=== PATIENT | male | born 1975 | race Caucasian/White ===

== ENCOUNTER 2019-01-08 20:42 | Inpatient (IN) ==
[2019-01-08] MEDS ORDERED: LOVENOX SUBQ ONE (21:04)
[2019-01-08] MEDS ORDERED: MORPHINE IV ONE (21:05)
[2019-01-08] MEDS ORDERED: ASPIRIN PO ONE (21:23)
[2019-01-08] MEDS ORDERED: ZOFRAN IV ONE (21:24)
[2019-01-08 21:26] LABS: BASO# 0.03 X1000 (0.0-0.2); BASO% 0.2 % (0.0-0.8); EOS# 0.29 X1000 (0.0-0.7); EOS% 2.1 % (0.0-10.0); HEMATOCRIT 44.3 % (42.0-52.0); HEMOGLOBIN 14.9 g/dL (14.0-18.0); IMM GRAN# 0.04 X1000 (0.0-0.04); IMM GRAN% 0.3 % (0.0-0.5); LYMPH# 2.06 X1000 (1.2-3.4); LYMPH% 15.2 % (20.5-51.1); MCH 30.2 PG (27-31); MCHC 33.6 g/dL (33-37); MCV 89.7 FL (81-99); MONO# 1.02 X1000 (0.11-0.59); MONO% 7.5 % (1.7-9.3); MPV 9.7 FL (7.4-10.4); NEUT# 10.11 X1000 (1.4-6.5); NEUT% 74.7 % (42.2-75.2); PLT 229 X1000 (130-400); RBC 4.94 XMIL (4.7-6.1); RDW 14.3 % (11.5-14.5); WBC 13.55 X1000 (4.8-10.8)
[2019-01-08 21:51] LABS: AGAP 12; BUN 22 mg/dL (8-22); CALCIUM 9.3 mg/dL (8.8-10.2); CHLORIDE 100 mmol/L (98-107); COSMO 277; ESTIMATED GFR > 60; GLUCOSE 123 mg/dL (70-104); POTASSIUM 4.2 mmol/L (3.5-5.1); SODIUM 136 mmol/L (136-145); TCO2 24 mmol/L (25-35)
--- NOTE | 2019-01-08 22:16 | Diag Imaging Result Doc PS360 ---
EXAM: CT ANGIOGRM PULMONARY ARTERIES HISTORY: DVTs, out of warfarin, sob, chest pain TECHNIQUE: CT chest with intravenous contrast. Pulmonary arterial protocol. COMPARISON: None. FINDINGS: There are filling defects in the left lower lobe pulmonary artery and the proximal branches of the left lower lobe pulmonary artery. Small filling defect in the posterior branch of the left upper lobe pulmonary artery. No thoracic aortic aneurysm or dissection. Trace left pleural fluid. There are mild increased interstitial markings posteriorly in the left upper and lower lobes. There is a small amount of atelectasis posteriorly in the right lower lobe. There is a calcified granuloma in the left upper lobe and there calcified left hilar lymph nodes. IMPRESSION: 1.Left lower lobe pulmonary emboli 2.Small left lung infiltrates versus infarction with basilar atelectasis This report was discussed with Dr. Styles on 01/08/2019 at 10:10 PM and was readback. This exam was performed using automated exposure control, adjustment of mA or kV according to patient size, and/or use of iterative reconstruction technique. Electronically signed by Luis Felpie Baum 01/08/2019 10:13 PM
[2019-01-08] MEDS ORDERED: TORADOL IV ONE (22:28)
[2019-01-08] MEDS ORDERED: ROCEPHIN 1 GM in NS 50 ML IV ONE (22:29)
[2019-01-08] MEDS ORDERED: DILAUDID IV ONE (22:35)
[2019-01-08] MEDS ORDERED: TYLENOL PO ONE (23:01)
--- NOTE | 2019-01-08 23:56 | PROVIDER DOCUMENTATION ---
This chart was entered by Юлия Morales Scribe, acting as scribe for Kleber Castrejon MD. HPI-General Adult - General Chief Complaint: Shortness of Breath Stated Complaint: sob Time Seen by Provider: 01/08/19 20:54 Source: patient Allergies/Adverse Reactions: Patient Allergies Allergy/AdvReac Type Severity Reaction Status Date / Time bacitracin Allergy SWELLING Verified 01/08/19 21:25 [From Neosporin ([id number])] neomycin Allergy SWELLING Verified 01/08/19 21:25 [From Neosporin ([id number])] polymyxin B Allergy SWELLING Verified 01/08/19 21:25 [From Neosporin ([id number])] Sulfa (Sulfonamide Allergy SWELLING Verified 01/08/19 21:25 Antibiotics) - History of Present Illness -Gen Adult Nature of Presenting Problems: Pt is 43/M presents to ED via EMS w/ SOB and left side CP increase with breathing started slowly this morning getting worse,10/10. Pt is suppose to take Warfarin but could not afford it. 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 Location of Pain/Injury: reports: chest (pressure) Quality of Pain: reports: pressure Severity: reports: mild Onset/Duration: reports: just prior to arrival Context/Activities at Onset: reports: none Modifying Factors: improves with: nothing Associated Symptoms: reports: chest pain, shortness of breath. denies: vomiting Review of Systems - Adult - REVIEW OF SYSTEMS - ADULT Constitutional: reports: no symptoms reported. denies: chills, fever Eyes: reports: no symptoms reported Ears, Nose, Mouth & Throat: reports: no symptoms reported Cardiovascular: reports: chest pain. denies: edema Respiratory: reports: no symptoms reported, shortness of breath. denies: cough , wheezing Gastrointestinal: reports: no symptoms reported Genitourinary: reports: no symptoms reported Musculoskeletal: reports: no symptoms reported Integumentary: reports: no symptoms reported Neurological: reports: no symptoms reported. denies: dizziness/vertigo, headache/migraines Psychiatric: reports: no symptoms reported Endocrine: reports: no symptoms reported Hematologic/Lymphatic: reports: no symptoms reported Allergic/Immunologic: reports: no symptoms reported All Other Systems: Reviewed and Negative Past History - Adult - PAST MEDICAL HISTORY-ADULT Review of Records: reports: Old Records Reviewed, Nursing Assessment Review, Medications Reviewed, Social history reviewed & non-contributory. Physical Exam-General - CONSTITUTIONAL General Appearance: alert, moderate distress, other (looks in pain) - EYES Eyes: PERRL/EOMI - HEAD, EARS, NOSE, MOUTH & THROAT HENMT: normocephalic/atraumatic, moist mucous membranes, normal ENT inspection - NECK Neck: non-tender - RESPIRATORY Respiratory: lungs clear, normal breath sounds, other (Tacypneic) - CARDIOVASCULAR Cardiovascular: normal peripheral pulses, regular rate, rhythm, no edema - GASTROINTESTINAL (ABDOMEN) Abdominal Exam: normal bowel sounds, non tender, soft - MUSCULOSKELETAL Extremity: normal range of motion, non-tender, normal gait, normal inspection - SKIN Integumentary: normal color, warm/dry - NEUROLOGIC Neurologic: grossly normal Progress - PLAN OF CARE/RESULTS Progress/Plan/Lab Results: Vital Signs - 8 hr 01/08/19 20:44 Temperature 98.5 F Pulse Rate 99 H Respiratory Rate 20 Blood Pressure 166/89 O2 Sat by Pulse Oximetry 100 Orders Category Date Time Status Cardiac Monitoring DIRECTED Care 01/08/19 21:06 Active Use Oxygen.Protocol ORDERED Care 01/08/19 21:06 Active CTA [CT ANGIOGRM PULMONARY ARTERIES] [CT] Stat Exams 01/08/19 21:04 Ordered BMP [BASIC METABOLIC PANEL] [CHEM] Stat Lab 01/08/19 21:18 Ordered CBC WITH ELECTRONIC DIFF [HEME] Stat Lab 01/08/19 21:18 Ordered Enoxaparin 1 mg/kg [Lovenox 1 mg/kg] Med 01/08/19 21:04 Once 1 each SUBQ NOW ONE Morphine Med 01/08/19 21:05 Discontinued 8 mg IV NOW ONE EKG [EKG] Stat Ther 01/08/19 20:42 Ordered High suspicion for PE, anticoagulation ordered directly before CTA, nurse informed of the plan Result Diagrams: 01/08/19 21:14 01/08/19 21:14 - REASSESSMENT Reassessment #1 Time Reassessed: 22:28 Status: unchanged (patient still in severe pain, will order dilaudid.) - CONSULTS/PCP/HOSPITALIST Notification #1 *Consult/PCP/Hospitalist*: Dr. Green Time Discussed: 22:41 Consult Disposition: Admit (Accepted.) Departure - Departure Date of Disposition Decision: 01/08/19 Time of Disposition Decision: 22:41 DIAGNOSIS: Pulmonary embolus Qualifiers: Pulmonary embolism type: unspecified Chronicity: acute Disposition: ADMITTED INPATIENT 09 Certified Medical Emergency: Emergent Condition: Serious Referrals and Follow-Ups: None,PCP [Primary Care Provider] - - Critical Care Note This patient required my direct & personal management of CC.: No Attestation - Physician/ JOEL Attestation Patient care was provided by Advanced Practice Provider:: No The physician spent face to face time with patient:: Yes Advanced Practice Provider documentation review:: Supervising physician onsite and consulted in the evaluation and care of this patient. The physician did have a face to face encounter with the patient. This chart was documented by the indicated scribe, (Юлия Morales, [employer]) and accurately reflects the services I performed and decisions made by me, Kleber Castrejon MD, as attested by the provider's signature.
[2019-01-09] MEDS ORDERED: DILAUDID IV PRN (00:02)
[2019-01-09] MEDS ORDERED: ZOFRAN IV PRN (00:02)
[2019-01-09] MEDS ORDERED: LOVENOX SUBQ SCH (00:02)
[2019-01-09 00:36] LABS: INR 0.89; PROTIME 12.8 Seconds (11.0-16.0)
[2019-01-09] MEDS: NS 1,000 ML IV SCH ×2 (00:36→06:27)
[2019-01-09 00:37] LABS: PTT 31.5 Seconds (22.3-41.8)
--- NOTE | 2019-01-09 02:39 | HISTORY AND PHYSICAL ---
PHYSICIAN: No primary care physician. HISTORY OF PRESENT ILLNESS: Mr. Gael Mcallister is a 43-year-old man with past history of prior DVTs and Paresthesia, supposed to be on Coumadin. He said he has been homeless over the last 1 month and has not taken his Coumadin for the greater part of a month. He says at 1 p.m. today he developed sudden sharp left-sided pain worse with deep breathing. He said the pain does not radiate anywhere. He denies any fever or chills. He said he has had a longstanding history of a cough that is nonproductive. He denies any lower extremity swelling, or pain or redness. No GI/ complaints. No palpitations or lightheadedness. He says even when he moves sometimes the pain gets worse and it is on the lower left lateral aspect of his lungs. No polyuria, polydipsia. No focal neurological complaints, arthralgia or rash. He has no recollection of his medications other than warfarin and says that he has not been taking all of his medications for the greater part of a month or so. REVIEW OF SYSTEMS: Twelve-system review was done. Positive findings per HPI. ALLERGIES: Bacitracin, neomycin, polymyxin B, sulfa. HOME MEDICATIONS: Other than previously warfarin, he cannot remember the other medications. SOCIAL HISTORY: Patient smokes 2 packs a day although he has not smoked barely 2 cigarettes today because of pain. No alcohol or illicit drug use per the patient. He is currently homeless. FAMILY HISTORY: No history of thrombophilia or diabetes in first-degree relatives. SURGICAL HISTORY: He has had cholecystectomy. LABORATORY STUDIES: White count is 13,000. Hemoglobin and hematocrit 14 and 44. Platelet 229. Normal differential. Chemistry: BUN is 22, creatinine 1.0, glucose 123. CT of the lungs showed left lower lobe pulmonary emboli with small left lung infiltrate versus infarction with bibasilar atelectasis. PHYSICAL EXAMINATION: GENERAL: Middle-aged man who is in acute distress from pain in his left chest. He is alert and oriented to person, place and time with normal mood and affect. VITAL SIGNS: Blood pressure 120/79, heart rate 99, respirations 20, temperature is 98.5, 96% on room air. HEENT: Head is normocephalic, atraumatic. Eyes: JUJU. EOMI. He is anicteric, not pale. ENT and oropharynx exam is grossly normal. NECK: Supple. No JVD. No carotid bruit. No thyromegaly. CHEST: Surprisingly clear when auscultated and good entry in both lung bagley. He does have tenderness though. When I push on his lateral aspect of his left chest wall, he winces. CARDIOVASCULAR: First and second heart sounds heard. No gallops, murmurs or rubs. Rhythm is regular. ABDOMEN: Full. No tenderness or -megaly. Bowel sounds are normal. RECTAL: Exam deferred at this time. EXTREMITIES: Good distal pulse volumes, regular, symmetrical. No edema, clubbing or peripheral cyanosis visualized. No areas of redness or swelling in lower extremities. NEUROLOGICAL: No focal deficits. SKIN: Intact and no breakdown, lesion or erythema. MUSCULAR: Exam is grossly normal. ASSESSMENT: Pulmonary embolism with possible distal pulmonary infarct. Cannot rule out concomitant pneumonia. PLAN: Patient will be started on Lovenox for now. The big issue with this patient will be to decide on long-term anticoagulation. If cost and compliance are an issue, he can sign up for patient assistance with [employer] in which case he will need to be here until [facility] see him. He will also need placement in a homeless snf at discharge. However, if patient does not qualify for patient assistance being that he is on SSI disability then warfarin will be the alternative choice here provided he can keep up with the Coumadin clinic checking his lab work from time to time. The advantage of Coumadin is that we will be able to say for certain if he is truly compliant with his medication or not. Otherwise, during his stay he will be treated symptomatically for his pain with Tylenol, low-dose NSAIDs for a few days and p.o. and IV opioids. Incentive spirometer will be encouraged to avoid splinting and subsequent pneumonia in this patient. cc: Khloe Green MD
[2019-01-09] MEDS: NICODERM PATCH TD SCH (03:09)
[2019-01-09] MEDS: OXY IR PO PRN ×5 (04:40→22:43)
[2019-01-09 07:30] LABS: BASO# 0.02 X1000 (0.0-0.2); BASO% 0.2 % (0.0-0.8); EOS# 0.09 X1000 (0.0-0.7); EOS% 0.9 % (0.0-10.0); HEMATOCRIT 40.9 % (42.0-52.0); HEMOGLOBIN 13.6 g/dL (14.0-18.0); LYMPH# 0.96 X1000 (1.2-3.4); LYMPH% 9.5 % (20.5-51.1); MCH 30.3 PG (27-31); MCHC 33.3 g/dL (33-37); MCV 91.1 FL (81-99); MONO# 0.92 X1000 (0.11-0.59); MONO% 9.1 % (1.7-9.3); MPV 9.4 FL (7.4-10.4); NEUT# 8.08 X1000 (1.4-6.5); NEUT% 80.3 % (42.2-75.2); PLT 193 X1000 (130-400); RBC 4.49 XMIL (4.7-6.1); RDW 14.3 % (11.5-14.5); WBC 10.07 X1000 (4.8-10.8)
[2019-01-09 07:59] LABS: AGAP 11; BUN 20 mg/dL (8-22); CALCIUM 8.8 mg/dL (8.8-10.2); CHLORIDE 103 mmol/L (98-107); COSMO 282; CREATININE 1.1 mg/dL (0.7-1.2); ESTIMATED GFR > 60; GLUCOSE 132 mg/dL (70-104); POTASSIUM 4.4 mmol/L (3.5-5.1); SODIUM 139 mmol/L (136-145); TCO2 25 mmol/L (25-35)
[2019-01-09] MEDS ORDERED: MOBIC PO SCH (09:00)
[2019-01-09] MEDS ORDERED: DOXYCYCLINE PO SCH (09:00)
[2019-01-09] MEDS ORDERED: TYLENOL PO SCH ×2 (09:00→12:30)
[2019-01-09] MEDS: FLEXERIL PO SCH ×3 (12:46→21:55)
[2019-01-09] MEDS: LOVENOX SUBQ SCH (13:01)
[2019-01-09] MEDS: LIDODERM TOP SCH (13:49)
[2019-01-09] MEDS: TYLENOL PO SCH ×2 (14:55→21:55)
--- NOTE | 2019-01-09 15:28 | PROGRESS NOTE ---
DATE: 01/09/2019 INTERVAL HISTORY: Mr. Martines was admitted overnight for left-sided lower lobe pulmonary emboli and left chest pain. I did not see an EKG in the chart or in the scanned report, and I had ordered a STAT EKG on him. There were no troponins in the labs. SUBJECTIVE: The patient continues to have left-sided pleuritic chest pain. He has also been having some hemoptysis. I discussed with him about lung infarction findings and that contributing to his pleuritic chest pain as well as hemoptysis and answered all of his questions. He says that Coumadin could be an option for him, and he will try to manage it through appointments with his regular doctor. He is denying fever or chills. He is coughing, but that is the baseline cough that he is having. OBJECTIVE: Vital signs: Currently temperature is 98, pulse 82, respiratory rate 18, blood pressure 130/72, saturating 97% on 1 to 2 L nasal cannula. General: Appears in mild to moderate distress because of left-sided chest pain. He is holding his left chest. Oral cavity is moist. Air entry bilaterally equal. No wheeze or rhonchi. Mild infrascapular crackles bilaterally. S1 and S2 normal. No tachycardia. No murmur, rub or gallop. Localized tenderness over left chest and inframammary region. He also appears to have gynecomastia. Abdomen: Soft. Mildly tender in epigastric region. Active bowel sounds. No hepatosplenomegaly. No lower extremity edema. Neurologic: Alert and oriented x3. DIAGNOSTIC DATA: Labs suggestive of resolution of leukocytosis. Hemoglobin of 13.6 with hematocrit dropping by almost 3 to 4%. His coagulation had INR of 0.89. His electrolytes are normal, and he has normal kidney function with creatinine of 1.1. No microbiological data. Pulmonary arteriogram has suggested left lower lobe pulmonary emboli with small left lung infiltrate versus infarction. ASSESSMENT AND PLAN: 1. Acute left lower lobe pulmonary embolism with lung infarction. The patient had prior history of factor V Leiden mutation and multiple lower extremity DVTs. He had run out of his Coumadin since last 1 month because of homelessness, and it is likely that his pulmonary embolism is related to that. Continue enoxaparin therapeutic dose. I will appreciate Social Work input about helping him manage Warfarin versus Xarelto. I would prefer newer oral anticoagulant such as Xarelto or Eliquis if he is able to afford considering compliance issue with Warfarin. 2. Left-sided pleuritic chest pain because of lung infarction. Continue the patient on acetaminophen, p.r.n. oxycodone. Start the patient on topical lidocaine patch and cyclobenzaprine. There is also a complaint of muscle spasm. 3. Hemoptysis, likely in the setting of lung infarction and use of enoxaparin. Follow up with CBC tomorrow. He does not have any sign of hemodynamic instability at the moment. 4. History of factor V Leiden. Aware. 5. History of cerebrovascular accident, status post right upper and right lower extremity weakness in 2007 and 2017. Likely related to factor V Leiden and noncompliance with Coumadin. Aware. DISPOSITION: The patient remains inside the hospital for management of pulmonary embolism. I will follow up with EKG if needed, troponin and echocardiogram. Plan of care was discussed with him. All of his questions have been answered. cc: Anirudh Petersen MD
[2019-01-10] MEDS: LOVENOX SUBQ SCH ×2 (01:04→13:01)
[2019-01-10] MEDS: NICODERM PATCH TD SCH (02:43)
[2019-01-10] MEDS: OXY IR PO PRN ×4 (02:43→18:40)
[2019-01-10] MEDS: FLEXERIL PO SCH ×3 (05:47→20:49)
[2019-01-10 07:36] LABS: BASO# 0.02 X1000 (0.0-0.2); BASO% 0.2 % (0.0-0.8); EOS# 0.11 X1000 (0.0-0.7); HEMATOCRIT 41.9 % (42.0-52.0); HEMOGLOBIN 13.5 g/dL (14.0-18.0); IMM GRAN# 0.02 X1000 (0.0-0.04); IMM GRAN% 0.2 % (0.0-0.5); LYMPH# 1.03 X1000 (1.2-3.4); LYMPH% 9.4 % (20.5-51.1); MCH 29.9 PG (27-31); MCHC 32.2 g/dL (33-37); MCV 92.7 FL (81-99); MONO# 1.22 X1000 (0.11-0.59); MONO% 11.1 % (1.7-9.3); MPV 9.8 FL (7.4-10.4); NEUT# 8.59 X1000 (1.4-6.5); NEUT% 78.1 % (42.2-75.2); PLT 203 X1000 (130-400); RBC 4.52 XMIL (4.7-6.1); RDW 14.5 % (11.5-14.5); WBC 10.99 X1000 (4.8-10.8)
[2019-01-10] MEDS: TYLENOL PO SCH ×4 (07:39→20:49)
[2019-01-10] MEDS: LIDODERM TOP SCH ×2 (07:39→08:20)
--- NOTE | 2019-01-10 15:28 | PROGRESS NOTE ---
DATE: 01/10/2019 INTERVAL HISTORY: No acute overnight events. Mr. Martines continues to have a mild degree of hemoptysis. He continues to have left-sided chest pain. He appears to be very sleepy today. SUBJECTIVE: He continues to complain of left-sided chest pain and feeling a little short of breath. VITALS: Temperature 97.9, pulse 104 per minute, blood pressure 158/76, saturating 97% on 2 L nasal cannula. PHYSICAL EXAMINATION: General: He appears in mild distress because of left-sided chest pain. HEENT: Oral cavity is moist. Lungs: Air entry bilaterally equal. No wheeze, rhonchi. Mild intrascapular crackles bilaterally. Cardiovascular: S1, S2 normal. Tachycardic. No murmur, rub or gallop. He has significantly localized tenderness over left chest in inframammary region which is reproducible on palpation. His chest pain also gets worse on deep breathing and movement of left shoulder. He appears to have gynecomastia. Abdomen: Soft, nontender. Active bowel sounds. No hepatosplenomegaly. Extremities: No lower extremity edema. Neurologic: He is alert oriented x 3. LABS: WBC of 10.9, stable hemoglobin, hematocrit, platelet count. Microbiology: No data. No new imaging. ASSESSMENT AND PLAN: 1. Acute left lower lobe pulmonary embolism with lung infarction. The patient had previous history of Factor V Leiden and multiple lower extremity DVTs with noncompliance off Coumadin since last 1 month because of homelessness, which could have contributed to his pulmonary embolism. Continue enoxaparin at therapeutic dose. Social Work team has been consulted about helping with future transition to either Xarelto or Eliquis or warfarin, considering compliance and cost. 2. Left-sided pleuritic chest pain. This is likely a combination of lung infarction, costochondritis and muscle stretch. Continue acetaminophen, cyclobenzaprine, and p.r.n. oxycodone with lidocaine patch. 3. Hemoptysis, likely in the setting of lung infarction and use of enoxaparin. His CBC is stable. He does not have worsening shortness of breath. I will continue to monitor it. 4. History of Factor V Leiden, aware. 5. History of CVA status post right upper and lower extremity weakness in 2018 and 2017, likely related to Factor V Leiden and noncompliance with Coumadin, as was reported by the patient. Aware. 6. Disposition: The patient remains inside the hospital as we await further social work input on warfarin versus Xarelto. Plan of care is discussed with him. All of his questions have been answered. cc: Anirudh Petersen MD
[2019-01-10] MEDS: COUMADIN PO SCH (20:49)
[2019-01-11] MEDS: LOVENOX SUBQ SCH ×2 (00:07→12:21)
[2019-01-11] MEDS: OXY IR PO PRN ×6 (00:07→21:14)
[2019-01-11] MEDS: FLEXERIL PO SCH ×3 (04:06→20:26)
[2019-01-11] MEDS: NICODERM PATCH TD SCH (04:06)
[2019-01-11 07:14] LABS: BASO# 0.02 X1000 (0.0-0.2); BASO% 0.2 % (0.0-0.8); EOS# 0.14 X1000 (0.0-0.7); EOS% 1.6 % (0.0-10.0); HEMATOCRIT 40.1 % (42.0-52.0); IMM GRAN# 0.02 X1000 (0.0-0.04); IMM GRAN% 0.2 % (0.0-0.5); LYMPH# 1.25 X1000 (1.2-3.4); LYMPH% 14.1 % (20.5-51.1); MCH 29.8 PG (27-31); MCHC 32.4 g/dL (33-37); MONO# 1.14 X1000 (0.11-0.59); MONO% 12.9 % (1.7-9.3); MPV 9.5 FL (7.4-10.4); NEUT# 6.29 X1000 (1.4-6.5); PLT 193 X1000 (130-400); RBC 4.36 XMIL (4.7-6.1); RDW 14.2 % (11.5-14.5); WBC 8.86 X1000 (4.8-10.8)
[2019-01-11 07:23] LABS: INR 0.95; PROTIME 13.4 Seconds (11.0-16.0)
--- NOTE | 2019-01-11 07:48 | EKG Report ---
Test Performed on : 01/09/2019 4:11:54 PM Test Reason : Left chest pain Blood Pressure : / mmHG Vent. Rate : 103 BPM Atrial Rate : 103 BPM P-R Int : 136 ms QRS Dur : 090 ms QT Int : 356 ms P-R-T Axes : 047 053 063 degrees QTc Int : 466 ms Sinus tachycardia. Otherwise normal ECG When compared with ECG of 08-JAN-2019 21:07, (Unconfirmed) aberrant conduction. is no longer present Confirmed by Saran SEO, Reid Rodriguez ([id number]) on 01/11/2019 9:12:59 PM
[2019-01-11] MEDS: TYLENOL PO SCH ×3 (08:27→20:26)
--- NOTE | 2019-01-11 09:10 | EKG Report ---
Test Performed on : 01/08/2019 9:07:14 PM Test Reason : shortness of breath Blood Pressure : / mmHG Vent. Rate : 095 BPM Atrial Rate : 095 BPM P-R Int : 144 ms QRS Dur : 084 ms QT Int : 358 ms P-R-T Axes : 041 053 060 degrees QTc Int : 449 ms Sinus rhythm. with premature atrial complexes. with aberrant conduction. Otherwise normal ECG No previous ECGs available Unconfirmed Result
[2019-01-11] MEDS: LIDODERM TOP SCH (10:17)
--- NOTE | 2019-01-11 14:25 | PROGRESS NOTE ---
DATE: 01/11/2019 INTERVAL HISTORY: No acute overnight events. SUBJECTIVE: Patient is denying any new symptoms. Continues to have left-sided chest pain. I encouraged him to come out of bed and walk. I also encouraged him to cough. He continues to have some hemoptysis. He denies new complaints. VITALS: Temperature of 98.2, pulse 86, respiratory rate 19, blood pressure 130/72, saturating 98% on 1 to 2 L nasal cannula. PHYSICAL EXAMINATION: General: The patient appears in mild distress because of left-sided chest pain. HEENT: Oral cavity is moist. Lungs: Air entry bilaterally equal. No wheezes, rhonchi. Mild infrascapular crackles. He is taking a shallow breath. Cardiovascular: S1, S2 normal, not tachycardic. No murmur, rub or gallop. He has significantly localized tenderness over left chest inframammary region and left upper flank region reproducible on palpation, which also gets worse on deep breathing. He appears to have gynecomastia. Abdomen: Soft, nontender. Active bowel sounds. No hepatosplenomegaly. No lower extremity edema. Neurologic: He is alert and oriented x 3. LABS: Suggestive of no leukocytosis. Stable hemoglobin, hematocrit and platelet count. No BMP at the moment. No new microbiological data. No imaging. ASSESSMENT AND PLAN: 1. Acute left lower lobe pulmonary embolism with lung infarction, with previous history of Factor V Leiden mutation and multiple lower extremity DVT,s with noncompliance with Coumadin since last one month because of homelessness, which could have contributed to his PE. Continue enoxaparin therapeutic dose. Social work team has been consulted about helping him with future transition to either Xarelto or Eliquis or warfarin considering compliance as well as cost. 2. Left-sided pleuritic chest pain, combination of lung infarction, costochondritis and a muscle stretch. Continue acetaminophen, cyclobenzaprine and p.r.n. oxycodone with lidocaine patch. 3. Hemoptysis in the setting of lung infarction and to some extent use of enoxaparin. His CBC is stable. He is hemodynamically stable. I will continue with enoxaparin. 4. History of Factor V Leiden mutation and multiple DVTs, aware. 5. History of CVA status post right upper and lower extremity weakness in 2017 and 2018. At baseline, he does have some weakness of right upper extremity as compared to left; however, he is fairly functional, does not use cane or walker. 6. Disposition: Patient remains inside the hospital for anticoagulation and need and for help getting Coumadin versus Xarelto. Plan of care was discussed with him. All of his questions have been answered. cc: Anirudh Petersen MD
[2019-01-11] MEDS: COUMADIN PO SCH (20:26)
[2019-01-12] MEDS: OXY IR PO PRN ×5 (01:30→20:08)
[2019-01-12] MEDS: LOVENOX SUBQ SCH ×2 (01:30→14:35)
[2019-01-12] MEDS: NICODERM PATCH TD SCH (01:49)
[2019-01-12] MEDS: FLEXERIL PO SCH ×3 (05:29→20:08)
[2019-01-12 07:59] LABS: BASO# 0.02 X1000 (0.0-0.2); BASO% 0.2 % (0.0-0.8); EOS# 0.22 X1000 (0.0-0.7); EOS% 2.6 % (0.0-10.0); HEMATOCRIT 39.4 % (42.0-52.0); HEMOGLOBIN 12.7 g/dL (14.0-18.0); IMM GRAN# 0.02 X1000 (0.0-0.04); IMM GRAN% 0.2 % (0.0-0.5); LYMPH% 17.6 % (20.5-51.1); MCH 29.5 PG (27-31); MCHC 32.2 g/dL (33-37); MCV 91.6 FL (81-99); MONO# 0.82 X1000 (0.11-0.59); MONO% 9.6 % (1.7-9.3); MPV 9.6 FL (7.4-10.4); NEUT# 5.96 X1000 (1.4-6.5); NEUT% 69.8 % (42.2-75.2); PLT 224 X1000 (130-400); RDW 13.8 % (11.5-14.5); WBC 8.54 X1000 (4.8-10.8)
[2019-01-12 08:07] LABS: INR 0.95; PROTIME 13.4 Seconds (11.0-16.0)
[2019-01-12 08:35] LABS: AGAP 10; BUN 16 mg/dL (8-22); CALCIUM 9.5 mg/dL (8.8-10.2); CHLORIDE 101 mmol/L (98-107); COSMO 281; CREATININE 0.9 mg/dL (0.7-1.2); ESTIMATED GFR > 60; GLUCOSE 102 mg/dL (70-104); POTASSIUM 4.3 mmol/L (3.5-5.1); SODIUM 140 mmol/L (136-145); TCO2 29 mmol/L (25-35)
[2019-01-12] MEDS: LIDODERM TOP SCH (09:37)
[2019-01-12] MEDS: TYLENOL PO SCH ×3 (09:37→20:08)
--- NOTE | 2019-01-12 19:22 | PROGRESS NOTE ---
DATE: 01/12/2019 SUBJECTIVE: No overnight events. The patient continues to have hemoptysis. However, his chest pain has resolved and he is hemodynamically stable. The patient does not appear in acute distress. I discussed with him about enoxaparin, warfarin versus newer anticoagulant planning and he stated he was provided some information. OBJECTIVE: Vital Signs: Currently temperature of 98 degrees, pulse 86, respiratory rate 19 blood pressure 146/77 saturating 96% on 2 L nasal cannula. General: Does not appear in any acute distress. His left-sided chest pain has resolved. HEENT: Oral cavity is moist. Lungs: Air entry bilaterally equal. No wheeze, rhonchi. Mild infrascapular crackles bilaterally. He continues to take shallow, rapid breaths. Cardiovascular: S1, S2 normal not tachycardic. No murmur, rub, or gallop. He has localized tenderness over left chest inframammary region and upper flank region, reproducible on palpation, getting worse on deep breathing. He also appears to have gynecomastia. Abdomen: Soft, nontender. Active bowel sounds. No hepatosplenomegaly. Extremities: No lower extremity edema. Neurologic: He is alert oriented x3. LABORATORY STUDIES: Suggestive of stable hemoglobin and hematocrit, and electrolytes. ASSESSMENT AND PLAN: 1. Acute left lower lobe pulmonary embolism with lung infarction with previous history of Factor V Leiden mutation, multiple lower extremity deep venous thromboses, and noncompliance with Coumadin since last 1 month because of homelessness. Continue enoxaparin therapeutic dose and warfarin. I am awaiting update from social work team about group activities aide for Eliquis. Once I confirm that, my plan is to stop enoxaparin and warfarin and start him on Eliquis. 2. Left-sided pleuritic chest pain, combination of lung infarction, costochondritis, and muscle stretch. Continue acetaminophen, cyclobenzaprine, and p.r.n. oxycodone with lidocaine patch. 3. Hemoptysis in the setting of lung infarction. His CBC has been stable. He is hemodynamically stable. I will continue with anticoagulation. 4. History of Factor V Leiden mutation, multiple deep venous thromboses, history of cerebrovascular accident status post slight right upper and lower extremity weakness in 2017 and 2018. Aware. DISPOSITION: The patient remains inside the hospital while we await changing his anticoagulation. Plan of care discussed with him. All of his questions have been answered. cc: Anirudh Petersen MD
[2019-01-12] MEDS: COUMADIN PO SCH (20:08)
[2019-01-13] MEDS: LOVENOX SUBQ SCH (01:56)
[2019-01-13] MEDS: NICODERM PATCH TD SCH (01:56)
[2019-01-13] MEDS: OXY IR PO PRN ×5 (01:56→20:13)
[2019-01-13] MEDS: FLEXERIL PO SCH ×3 (04:55→20:13)
[2019-01-13 07:00] LABS: BASO# 0.03 X1000 (0.0-0.2); BASO% 0.4 % (0.0-0.8); EOS# 0.25 X1000 (0.0-0.7); EOS% 3.7 % (0.0-10.0); HEMATOCRIT 37.8 % (42.0-52.0); HEMOGLOBIN 12.2 g/dL (14.0-18.0); LYMPH# 1.46 X1000 (1.2-3.4); LYMPH% 21.7 % (20.5-51.1); MCH 29.5 PG (27-31); MCHC 32.3 g/dL (33-37); MCV 91.3 FL (81-99); MONO% 10.4 % (1.7-9.3); MPV 9.3 FL (7.4-10.4); NEUT# 4.28 X1000 (1.4-6.5); NEUT% 63.8 % (42.2-75.2); PLT 235 X1000 (130-400); RBC 4.14 XMIL (4.7-6.1); RDW 13.6 % (11.5-14.5); WBC 6.72 X1000 (4.8-10.8)
[2019-01-13 07:04] LABS: INR 0.96; PROTIME 13.5 Seconds (11.0-16.0)
[2019-01-13] MEDS: TYLENOL PO SCH ×3 (09:39→20:13)
[2019-01-13] MEDS: LIDODERM TOP SCH (09:39)
[2019-01-13] MEDS: XARELTO PO SCH ×2 (14:08→20:13)
--- NOTE | 2019-01-13 21:02 | PROGRESS NOTE ---
DATE: 01/13/2019 INTERVAL HISTORY: Patient's enoxaparin was stopped and he was started on rivaroxaban, which he has been tolerating well. He continues to have hemoptysis. However, his blood count is stable and he does not appear to have any hemodynamic instability. I discussed with him about establishing a regular physician and following up with him as an outpatient. SUBJECTIVE: Patient states his chest pain has significantly improved. He is feeling much better. He is able to take deeper breaths now as compared to before. PHYSICAL EXAMINATION: Vitals: Temperature 98.1, pulse 85, blood pressure 123/70, saturating 95 on 3 L nasal cannula. General: Does not appear in any acute distress. HEENT: Oral cavity is moist. He has missing teeth. No pallor, cyanosis, clubbing or icterus. Lungs: Air entry bilaterally equal. No wheeze, rhonchi. Mild infrascapular crackles bilaterally. He continues to take shallow breaths. However, on today's examination, he is able to take deeper breath as compared to before. Cardiovascular: S1, S2 normal. Not tachycardic. No murmur, rub or gallop. Chest: Significantly decreased tenderness over left chest as compared to previous examination, especially on the left inframammary region. Abdomen: Soft, nontender. Active bowel sounds. No hepatosplenomegaly. Extremities: No lower extremity edema. Neurologic: He is alert and oriented x3. LABS: Suggestive of stable hemoglobin of 12.2, hematocrit of 37.8, normal coagulation. ASSESSMENT AND PLAN: 1. Acute left lower lobe pulmonary embolism with lung infarction with previous history of Factor V Leiden mutation. Previous history of lower extremity deep vein thrombosis, and noncompliance with Coumadin since last 1 month because of homelessness. Switch his enoxaparin and warfarin to rivaroxaban as, after consulting with social work, he would be able to get rivaroxaban supply for at least 1 year free of cost. 2. Left-sided pleuritic chest pain, combination of lung infarction, costochondritis and muscle stretch. Continue acetaminophen, cyclobenzaprine, and p.r.n. oxycodone with lidocaine patch. His chest pain has significantly improved. 3. Hemoptysis in the setting of lung infarction. His CBC has been stable. He is hemodynamically stable as well. I will continue anticoagulation. I advised him to follow up with his regular doctor and to get a repeat blood count done within 5 days after discharge. 4. History of Factor V Leiden mutation with multiple deep vein thrombosis and history of cerebrovascular accident because of Factor V elevation in 2014 and 2007 and 2017, aware. 5. Disposition: If the patient's blood count is stable, he should be able to be discharged home on Xarelto. He is planning to live with his friend, sharing a room after discharge. cc: Anirudh Petersen MD
[2019-01-14] MEDS: OXY IR PO PRN ×3 (04:09→12:45)
[2019-01-14] MEDS: NICODERM PATCH TD SCH (04:11)
[2019-01-14] MEDS: FLEXERIL PO SCH ×2 (04:13→12:06)
[2019-01-14 08:13] LABS: BASO# 0.03 X1000 (0.0-0.2); BASO% 0.4 % (0.0-0.8); EOS# 0.31 X1000 (0.0-0.7); EOS% 4.6 % (0.0-10.0); HEMATOCRIT 38.2 % (42.0-52.0); HEMOGLOBIN 12.3 g/dL (14.0-18.0); IMM GRAN# 0.02 X1000 (0.0-0.04); IMM GRAN% 0.3 % (0.0-0.5); LYMPH% 22.2 % (20.5-51.1); MCH 29.4 PG (27-31); MCHC 32.2 g/dL (33-37); MCV 91.4 FL (81-99); MONO% 8.9 % (1.7-9.3); MPV 9.2 FL (7.4-10.4); NEUT# 4.29 X1000 (1.4-6.5); NEUT% 63.6 % (42.2-75.2); PLT 249 X1000 (130-400); RBC 4.18 XMIL (4.7-6.1); RDW 13.6 % (11.5-14.5); WBC 6.75 X1000 (4.8-10.8)
[2019-01-14] MEDS: LIDODERM TOP SCH (08:44)
[2019-01-14] MEDS: TYLENOL PO SCH (08:45)
[2019-01-14] MEDS: XARELTO PO SCH (08:45)
[2019-01-14 16:00] VITALS: BP 153/78
--- NOTE | 2019-01-15 06:42 | DISCHARGE SUMMARY ---
ADMISSION DATE: 01/09/2019 DISCHARGE DATE: 01/14/2019 DISCHARGE DIAGNOSES: 1. Acute left lower lobe pulmonary embolism with lung infarction with previous history of factor V of Leiden mutation. 2. Factor V Leiden mutation. 3. Left-sided pleuritic chest pain. 4. Minimal hemoptysis in the setting of lung infarction. HOSPITAL COURSE: A 43-year-old male with a past medical history of deep venous thrombosis and paresthesia, supposed to be on Coumadin. Apparently he has been homeless for over a month and has not been taking his Coumadin. Apparently on 01/09/2019 at 1 p.m. he developed sudden onset of sharp left-sided chest pain worse with deep breathing, nonradiated. No fever, no chills. He has a longstanding history of cough that is nonproductive. No lower extremity swelling or pain or redness. No other symptoms. The pain gets worse with movement. No focal neurological deficits or rash. He has a history of factor V Leiden and since he is not taking the medication he presented with left lower lobe pulmonary emboli per a CT angiogram of the chest done on 01/08/2019. The patient has been placed on anticoagulation, initially with Lovenox and, even though he was on warfarin before, we do not believe that he is going to follow up with a primary care doctor, so we tried to set this patient up with [facility] or [facility]. A social insurance analyst has been on board and we found a way to give him some treatment for free. Apparently, as per the patient, he has been getting some blood thinners for free before. He has been having a little bit/minimal hemoptysis with his cough. No phlegm. His hemoglobin and hematocrit has been stable. Will continue with the anticoagulation since this patient has a history of factor V Leiden and he is currently having a pulmonary embolism. We advised the patient to follow up with a primary care provider. He needs to find one. The social insurance analyst gave him a list of the possible primary care providers. Upon discharge the patient was in a stable medical condition, tolerating p.o. and ambulating. PHYSICAL EXAMINATION: Vital Signs: Temperature 98.2 degrees, pulse 87, respiratory rate 17, blood pressure 153/78, oxygen saturation 96 on room air. HEENT: Head normocephalic. No trauma. PERRLA. Neck: Supple. No JVD. No masses. Central trachea. Chest: Clear to auscultation. No wheezing. No rales. Decreased breath sounds over the left lower lung compare with the right one. Abdomen: Soft, nontender, nondistended. No hepatosplenomegaly. Extremities: No edema. No clubbing. No cyanosis. Neurological: Alert and oriented x3. No focal deficits. LABORATORY: WBC 6.7, hemoglobin 12.3, hematocrit 38.2, platelets 249,000. DISCHARGE MEDICATIONS: Xarelto 50 mg p.o. b.i.d. to complete 21 days and then 20 mg p.o. daily. Hamill 1 tablet p.o. q.6 hours as needed. cc: Christiano Currie MD
[2019-02-03] MEDS ORDERED: XARELTO PO SCH (09:00)
== END 2019-01-14 17:36 | disposition home or self-care (01) | DRG 176 ==
LOC: SUPCPDRO → ED 20:42 → 3N 01-09 02:10 → SUATTDRO 01-09 02:10
PROVIDERS: ATTEND Internal Medicine
CPT/HCPCS: 71275; 80048; 85025; 85610; 85730; 93005; 93010; 93970; 94761; 94799; 96361; 96365; 96372; 96375; 97162; 99285; A9270; J0696; J1170; J1650; J2270; J2405; J7030; Q9967